=== PATIENT | female | born 1995 | race Caucasian/White ===

== ENCOUNTER 2020-07-14 14:53 | Inpatient (IN) | payer OTHER ==
[2020-07-14] MEDS ORDERED: PRENATAL CAPLE1 EAC1 (16:16)
[2020-07-16] MEDS ORDERED: NAPR500T14 PO (08:45)
== END 2020-07-16 12:06 | disposition home or self-care (01) | DRG 807 ==
LOC: LDR 14:53 → OB/GYN 14:53
PROVIDERS: ADMIT Obstetrics & Gynecology; ATTEND Obstetrics & Gynecology
PROC: 10E0XZZ Delivery of Products of Conception, External Approach (ICD-10-PCS; principal; 2020-07-14)
PROC: 4A1HXFZ Monitoring of Products of Conception, Cardiac Rhythm, External Approach (ICD-10-PCS; 2020-07-14)
PROC: 4A033R1 Measurement of Arterial Saturation, Peripheral, Percutaneous Approach (ICD-10-PCS; 2020-07-14)
DX: O66.0 Obstructed labor due to shoulder dystocia (principal); Z37.0 Single live birth; Z3A.38 38 weeks gestation of pregnancy; Z20.822 Contact with and (suspected) exposure to COVID-19